=== PATIENT | female | born 2000 | race African-American/Black ===

== ENCOUNTER 2022-05-27 21:48 | Emergency (ER) | payer OTHER, SELFPAY ==
[2022-05-27] VITALS (8 sets, daily range): BP systolic 111; BP diastolic 71; PULSE 124–129; RESP 18–27; TEMP 37.2; O2SAT 98–100
--- NOTE | ~2022-05-27 | CT_ITS ---
EXAMINATION: CT soft tissue neck w con DATE: 05/28/2022 01:29 INDICATION: Tonsillar hypertrophy. Sore throat. TECHNIQUE: Computed tomography (CT) of the neck was performed with 75 mL Omnipaque-350 intravenous co ntrast. Automated exposure control and iterative reconstruction technique were employed. The dose-percy gth product was 549.81 mGy-cm. COMPARISON: None FINDINGS: The palatine tonsils are enlarged and hypodense, consistent with phlegmon. No drainable abs cess. There is mild bilateral high internal jugular chain lymphadenopathy, likely reactive. The cervi marisol carotid arteries are normal. There is mild mucosal thickening in the paranasal sinuses. The masto id air cells are normal. The bones are unremarkable. IMPRESSION: 1. Enlarged and hypodense palatine tonsils, consistent with phlegmon. No drainable abscess. 2. Mild bilateral high internal jugular chain lymphadenopathy, likely reactive. Reviewed, dictated and finalized at location A. IMPRESSION: 1. Enlarged and hypodense palatine tonsils, consistent with phlegmon. No draina ble abscess. 2. Mild bilateral high internal jugular chain lymphadenopathy, likely reactive.
--- NOTE | 2022-05-27 23:14 | ED.GENADULT ---
HPI - General Adult General Chief complaint: Upper Respiratory Infection <SHUN Rodriguez Last Filed: 05/28/22 04:48> Stated complaint: FLU LIKE SYMPTOMS/FEVER <SHUN Rodriguez Last Filed: 05/28/22 04:48> Time Seen by Provider: 05/27/22 22:47 <SHUN Rodriguez Last Filed: 05/28/22 04:48> Source: patient <SHUN Rodriguez Last Filed: 05/28/22 04:48> Mode of arrival: EMS <SHUN Rodriguez Last Filed: 05/28/22 04:48> Limitations: no limitations <SHUN Rodriguez Last Filed: 05/28/22 04:48> History of Present Illness HPI narrative: Patient is a 21-year-old female who presents the ED via EMS with report of sore throat. Patient reports she developed sore throat today, which has worsened throughout the day. She took Tylenol around 1 PM today without relief. She denies any difficulty swallowing, difficulty breathing, drooling. She also reports having fever, up to 103 degrees at home, but denies any recent cough, congestion, runny nose, myalgias, nausea, vomiting, recent sick contacts. <SHUN Rodriguez Last Filed: 05/28/22 04:48> Related Data Allergies/adverse reactions: Allergies Allergy/AdvReac Type Severity Reaction Status Date / Time No Known Allergies Allergy Verified 05/27/22 22:01 <SHUN Rodriguez Last Filed: 05/28/22 04:48> Review of Systems Review of Systems: CONSTITUTIONAL: Reports fever. ENT: Reports sore throat. Denies rhinorrhea, congestion. CARDIOVASCULAR: Denies chest pain. RESPIRATORY: Denies cough or dyspnea. GASTROINTESTINAL: Denies abdominal pain, nausea, vomiting. MUSCULOSKELETAL: Denies myalgia. <SHUN Rodriguez Last Filed: 05/28/22 04:48> All systems reviewed & are unremarkable except as noted in HPI and below <Breana Nath PA-C - Last Filed: 05/28/22 04:48> Exam Narrative: GENERAL: Mildly ill appearing, well-nourished, non-toxic, in no acute distress. HEAD: Normocephalic, atraumatic. EYES: PERRL/EOMI, conjunctivae clear bilaterally. NOSE: Normal, no drainage. THROAT: Pharynx clear, mild posterior erythema. Enlarged tonsils - 3+, some exudate, difficult to get a good exam on patient, even with tongue depressor. MMs dry. Geographic tongue with some white plaques on tongue and buccal surfaces. NECK: Supple. Tender anterior cervical adenopathy, no masses. RESPIRATORY: Airway patent, respirations nonlabored. Clear to auscultation bilaterally, no rales, rhonchi, wheezing. CARDIOVASCULAR: Tachycardic with regular rhythm without murmurs, rubs, or gallops. Peripheral pulses 2+ and equal bilaterally. MUSCULOSKELETAL: Moves all extremities. Strength/ROM intact without gross deformities. SKIN: Warm, dry, normal color. No rashes. NEURO: A&O X3. Speech clear. Cranial nerves II-XII grossly intact. Steady gait. No ataxic movements. PSYCHIATRIC: Appropriate mood and affect. Normal interaction. <Breana Nath PA-C - Last Filed: 05/28/22 04:48> Course SUPPORT GROUP MANAGER/PA Physician Supervision I have personally seen and evaluated the patient and agree with the assessment and plan of the advanced practice provider. I had [id number] time with the patient and was involved directly in the assessment and medical decision management. <Celestino Castellano MD - Last Filed: 05/28/22 05:26> Vital Signs Vital signs: Vital Signs Pulse Rate 126 H 05/27/22 22:32 Respiratory Rate 20 05/27/22 22:32 Pulse Oximetry 100 05/27/22 22:32 Temperature 37.2 C 05/27/22 22:45 Pulse Rate 126 H 05/28/22 01:01 Respiratory Rate 30 H 05/28/22 01:01 Blood Pressure 110/67 05/28/22 01:01 Pulse Oximetry 100 05/28/22 01:01 Oxygen Delivery Room Air 05/27/22 23:06 <Breana Nath PA-C - Last Filed: 05/28/22 04:48> Vital Signs Pulse Rate 126 H 05/27/22 22:32 Respiratory Rate 20 05/27/22 22:32 Pulse Oximetry 100 05/27/22
[2022-05-27 23:56] LABS: Influenza A QL RT-PCR Negative (Negative); Influenza B QL RT-PCR Negative (Negative); SARS-CoV-2 RNA PCR Negative
[2022-05-28] VITALS (31 sets, daily range): BP systolic 92–110; BP diastolic 58–78; PULSE 108–131; RESP 4–30; O2SAT 91–100
[2022-05-28 00:05] LABS: Basophils Absolute Auto 0.1 K/mm3 (0.0-0.1); Basophils Percent Auto 0.4 % (0.2-1.2); Hematocrit 41.7 % (37.0-47.0); Hemoglobin 12.7 g/dL (12.0-15.0); Immature Granulocyte Absolute 0.08 K/mm3 (0.00-0.031); Immature Granulocyte Percent A 0.6 % (0-0.5); Lymphocytes Absolute Auto 1.45 K/mm3 (0.9-3.2); Lymphocytes Percent Auto 10.4 % (18.3-44.2); Mean Corpuscular HGB Conc 30.5 g/dl (32-36); Mean Platelet Volume 10.4 fl (7.4-10.4); Monocytes Absolute Auto 1.3 K/mm3 (0.1-0.6); Monocytes Percent Auto 9.3 % (2.6-8.5); Neutrophils Absolute Auto 11.1 K/mm3 (1.3-6.7); Neutrophils Percent Auto 79.3 % (45.5-73.1); Platelet Count Result 246 k/mm3 (150-375); Red Blood Count 6.04 M/mm3 (4.2-5.4); Red Cell Distribution Width 16.9 % (11.5-14.5)
[2022-05-28 00:09] LABS: Alanine Aminotransferase 15 U/L (6-35); Albumin Level 4.4 g/dL (3.5-5.1); Alkaline Phosphatase 94 U/L (38-126); Anion Gap 10 mmol/L (8-16); Aspartate Amino Transferase 24 U/L (14-36); Bilirubin,Total 0.9 mg/dL (0.2-1.3); Blood Urea Nitrogen 13 mg/dL (7-17); Calcium 8.6 mg/dL (8.4-10.2); Carbon Dioxide 19 mmol/L (22-30); Chloride 105 mmol/L (98-107); Estimated Glomerular Filt Rate > 60; Glucose 106 mg/dL (65-110); Potassium 3.5 mmol/L (3.4-5.0); Sodium 134 mmol/L (137-145)
[2022-05-28] MEDS: LIDOCAINE HCL 2% VISC SOLN 15 ML UDC PO (00:15)
[2022-05-28] MEDS: SODIUM CHLORIDE 0.9% IV 1,000 ML 999 ML IV CONT ×2 (00:15→02:50)
[2022-05-28 01:16] LABS: Monoscreen Negative (Negative); Negative Monotest Control Negative (Negative); Positive Monotest Control Positive (Positive)
[2022-05-28] MEDS: ONDANSETRON INJ 4 MG/2 ML VIAL IV PUSH (02:43)
[2022-05-28] MEDS: KETOROLAC 30 MG/ML VIAL (*BKC) IV PUSH (02:45)
[2022-05-28] MEDS: methylPREDNISolone SOD SUCC 125 MG VIAL IV PUSH (02:46)
[2022-05-28] MEDS: AMOXICILLIN/CLAVULANATE K 875-125 MG TAB 1 TABLET PO (04:26)
[2022-05-28 04:49] LABS: Add Urine Microscopic? YES; Appearance Urine Turbid (Clear); Bilirubin Urine 2+ (Negative); Blood Urine 2+ (Negative); Color Urine Brown (Yellow); Glucose Urine UA Negative (Negative); Ketones Urine 3+ mg/dL (Negative); Leukocyte Esterase Ur Negative LEU/UL (Negative); Nitrate Urine Negative (Negative); Protein Urine 2+ mg/dL (Negative); Specific Grav Ur >= 1.030 (1.001-1.035); Urobilinogen Urine >=8.0 mg/dL (<2.0)
[2022-05-28 04:59] LABS: Bacteria Urine Trace /hpf; Mucus Urine Heavy /lpf; RBC Urine 51-75 /hpf (0-2); Squamous Epithelial Cell Urine Many /hpf (Few)
== END 2022-05-28 06:37 | disposition home or self-care (01) ==
PROVIDERS: Physician Assistant; Emergency Provider Emergency Medicine
DX: J03.90 Acute tonsillitis, unspecified (principal); B37.0 Candidal stomatitis; Z20.822 Contact with and (suspected) exposure to COVID-19
CPT/HCPCS: 36415; 70491; 80053; 81001; 81025; 85025; 86308; 87081; 87502; 87880; 96361; 96365; 96375; 99284; A9270; C9803; J0131; J1885; J2405; J2930; J7030; Q9967; U0003; U0005